=== PATIENT | female | born 1965 | race Caucasian/White ===

== ENCOUNTER → 2016-02-11 | Outpatient (CLI) | payer OTHER ==
--- NOTE | 2016-02-11 07:52 | MR ---
EXAMINATION TYPE: MR angio head wo con DATE OF EXAM: 02/11/2016 7:47 AM COMPARISON: NONE HISTORY: trigeminal neuralgia TECHNIQUE: Time of flight images focusing on the [place] were performed without contrast. 2- D and 3-D reconstructed images are created on MRI scanner and reviewed. FINDINGS: There is codominant vertebrobasilar system. There is slight tortuosity to proximal basilar artery. There are patent posterior communicating arteries identified bilaterally. There is no signifi cant stenosis or aneurysmal change in the posterior circulation. Images of the anterior circulation show no significant focal stenosis or aneurysmal change. Patent an terior communicating artery is identified. IMPRESSION: No significant focal stenosis or aneurysmal change at the level of the [place].
--- NOTE | 2016-02-11 08:08 | MR ---
EXAMINATION TYPE: MR brain wo con DATE OF EXAM: 02/11/2016 7:51 AM COMPARISON: NONE HISTORY: trigeminal neuralgia per order. Headaches with tingling sensation in face per patient. TECHNIQUE: Multiplanar, multisequence imaging of the brain and brainstem is performed without IV cont rast. FINDINGS: Diffusion weighted images demonstrate no evidence of a recent infarct or other diffusion abnormality. There is no extraaxial fluid collection or significant white matter signal abnormality. The ventricu lar system and cisternal spaces are normal in size and appearance. The brain volume is age appropria te. Midline structures demonstrate normal morphology. The craniocervical junction appears within normal limits. Normal vascular flow voids are present. The visualized sinuses are clear and the globes are i ntact. IMPRESSION: No significant finding is seen to account for patient's symptoms.
== END | disposition home or self-care (01) ==
LOC: RADMRIMAIN 07:09
PROVIDERS: ATTEND Psychiatry & Neurology Neurology
DX: G50.0 Trigeminal neuralgia (principal)
CPT/HCPCS: 70544; 70551

== ENCOUNTER → 2016-05-22 | Outpatient (CLI) | payer OTHER ==
--- NOTE | 2016-05-22 08:39 | MR ---
EXAMINATION TYPE: MR lumbar spine wo con DATE OF EXAM: 05/22/2016 6:44 AM COMPARISON: NONE HISTORY: 50-year-old female with low back pain TECHNIQUE: Multiplanar, multisequence images of the lumbar spine were acquired. FINDINGS: Vertebral body heights are preserved and alignment is maintained. No suspicious bone marrow placement. Conus medullaris is normal. There is mild desiccation of the L5-S1 intervertebral disc. Mild disc bulging at L3-S1 levels. A left intraforaminal posterior annular fissure is noted at L5-S1, sagittal image 5. From T12 through L3 levels, no spinal canal or neuroforaminal stenosis. At L3-L4, there is very mild bulging disc which does not contribute to any significant spinal canal o r neuroforaminal stenosis. At L4-L5, there is mild bulging disc and mild facet degenerative change. Changes do not result in any significant spinal canal or foraminal stenosis. At L5-S1, mild facet degenerative change and mild diffuse disc bulge. Again, left intraforaminal post erior annular fissure. Disc material closely approaches but does not appear to abut the major binta ing left S1 nerve root. No significant spinal canal stenosis. Minimal inferior neural foraminal narro wing on the left. No prevertebral or paravertebral soft tissue abnormality seen. IMPRESSION: 1. Mild degenerative disc disease with very mild disc bulging from L3 through S1 levels. 2. The disc is mildly desiccated at L5-S1 with a left intraforaminal annular fissure. Disc material m inimally encroaches onto the inferior left neural foramen at this level and closely approaches but do es not appear to abut the traversing left S1 nerve root. 2. No significant spinal canal or neural foraminal stenosis seen.
== END | disposition home or self-care (01) ==
LOC: RADMRIMAIN 06:07
PROVIDERS: ATTEND Psychiatry & Neurology Neurology
DX: M51.26 Other intervertebral disc displacement, lumbar region (principal); M51.36 Other intervertebral disc degeneration, lumbar region; M51.37 Other intervertebral disc degeneration, lumbosacral region
CPT/HCPCS: 72148

== ENCOUNTER → 2016-09-08 | Outpatient (CLI) | payer OTHER ==
[2016-09-07 14:36] VITALS: BMI 29.2
[2016-09-08 12:00] VITALS: BP 137/83; PULSE 99; RESP 18
--- NOTE | 2016-09-08 12:49 | P.CONS ---
History of Present Illness - Reason for Consult Consult date: 09/08/16 - Chief Complaint Lower back, tailbone and right hip pain - History of Present Illness This is a 50-year-old female who was recently diagnosed with lupus. She has multiple sites of arthritis especially in the lower extremities including bilateral knees for which she had total knee replacement already. Most of the patient's pain is in the lower back and the tailbone she has difficulty sitting straight because of this pain and she has to lie on either side to avoid any pressure on her tailbone. This pain increases by sitting and by standing or walking for too long. She denies any bowel or bladder dysfunction. This pain occasionally wakes her up at night. The patient states that [place] had helped her pain however she is out of it. She is on no specific anti-lupus medications. The patient is unemployed she lives with her significant other she admits to using one pack a day of tobacco but she denies any marijuana or illicit drug usage. She she feels numbness and tingling in both legs in no specific radicular distribution. The patient was told by her neurologist that she does have peripheral neuropathy however I don't have access to the results of the EMG testing that she had previously. Her lumbar spine MRI shows mild degenerative changes. Past Medical History Past Medical History: Asthma, Musculoskeletal Disorder, Osteoarthritis (OA) Additional Past Medical History / Comment(s): low back pain especially w/sitting , pain & numbness kitty legs, possible lupus-following up w/Dr Miller History of Any Multi-Drug Resistant Organisms: None Reported Past Surgical History: Joint Replacement, Tubal Ligation Additional Past Surgical History / Comment(s): cyst on ovaries removed, both knees replaced Past Anesthesia/Blood Transfusion Reactions: No Reported Reaction Smoking Status: Current every day smoker - Past Family History Father Family Medical History: Cancer Medications and Allergies Home Medications Medication Instructions Recorded Confirmed Type Amitriptyline HCl [Elavil] 25 mg PO HS 09/07/16 09/08/16 History OXcarbazepine [Trileptal] 300 mg PO QID 09/07/16 09/08/16 History Allergies Allergy/AdvReac Type Severity Reaction Status Date / Time No Known Allergies Allergy Verified 09/07/16 14:20 Physical Exam Vitals: Vital Signs Pulse Resp BP Pulse Ox 09/08/16 11:51 99 18 137/83 98 - Psychiatric Psychiatric: A&O x's 3 The patient is alert oriented 3. She is trying to set sideways to avoid any pressure on her tailbone. Neuro exam of the lower extremities showed decreased knee flexion and extension to 4 out of 5 bilaterally and symmetrically due to increasing pain in her back as she states that she has normal ankle flexion and extension and also normal bilateral deep tendon reflexes. She has significant tenderness around the tailbone area and also on the lumbar paravertebral area. She has severe pain with internal and external rotation of the right hip joint. Straight leg raising test increased her right thigh pain. Lungs are clear to auscultation heart is regular no murmurs. Assessment and Plan Plan: This is a 50-year-old female with history of lupus and widespread joint pain. She does have increasing lower back pain and right hip pain also significant pain around the coccyx with possible diagnosis of coccydynia. The lumbar spine MRI showed mild degenerative changes and disc tears. The physical exam showed significant tenderness around the coccyx and also significant pain with right hip internal and external rotation. The patient smokes one pack of cigarettes a day however she denies any illicit drug usage. The treatment at this point would be mostly anti-inflammatory medications I'll give her prescription for Mobic 7.5 mg twice a day after meals. 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 Given the significant pain with the right hip joint movement I will check the last x-ray of her right hip that the patient states she had received 2 years ago. We might need to repeat this x-ray. If the patient's pain does not get better with Mobic we can try using tramadol as needed for pain however I think that treating lupus most likely would help her pain too. I will try to obtain the last EMG test results that she had recently. I thank you for the consultation
== END | disposition home or self-care (01) ==
LOC: PNWHC3 11:32
PROVIDERS: ATTEND Anesthesiology
DX: M47.816 Spondylosis without myelopathy or radiculopathy, lumbar region (principal); M25.551 Pain in right hip; J45.909 Unspecified asthma, uncomplicated; F17.200 Nicotine dependence, unspecified, uncomplicated; Z79.899 Other long term (current) drug therapy
CPT/HCPCS: 99211

== ENCOUNTER → 2016-11-18 | Outpatient (CLI) | payer OTHER ==
--- NOTE | 2016-11-18 14:37 | MM ---
Reason for exam: screening (asymptomatic). Baseline mammogram. Physical Findings: Nurse did not find any significant physical abnormalities on exam. MG Screening Mammo w CAD Bilateral CC and MLO view(s) were taken. The breast tissue is heterogeneously dense. This may lower the sensitivity of mammography. There is no discrete abnormality. These results were verbally communicated with the patient and result sheet given to the patient on 11/18/16. ASSESSMENT: Negative, BI-RAD 1 RECOMMENDATION: Routine screening mammogram of both breasts in 1 year.
== END | disposition home or self-care (01) ==
LOC: RADMAMWWP 13:58
PROVIDERS: ATTEND Family Medicine
DX: Z12.31 Encounter for screening mammogram for malignant neoplasm of breast (principal)

== ENCOUNTER 2016-11-30 12:12 | Day surgery (SDC) | payer OTHER ==
[2016-11-25 13:50] VITALS: BMI 29.1
[~2016-11-30 12:12] MED LIST: LACTATED RINGERS 1,000 ML IV SCH; LIDOCAINE 1% 20 ML VIAL (10MG/ML) FOR IV START INTRADERMA PRN
[2016-11-30 12:20] VITALS: RESP 18; TEMP 97
[2016-11-30] MEDS ORDERED: LACTATED RINGERS 1,000 ML IV ONE (12:22)
[2016-11-30] MEDS ORDERED: PROPOFOL 10 MG/ML 20 ML VIAL IV ONE (12:58)
--- NOTE | 2016-11-30 13:27 | P.PCN ---
Date of Procedure: 11/30/16 Procedure(s) Performed: Procedure: Total colonoscopy. Preoperative diagnosis: Screening for neoplasia. Postoperative diagnosis: Exam within normal limits. Preparation: HalfLytely prep. Sedation: Was provided by anesthesia. Brief clinical history: The patient is a 51-year-old female who is referred for this evaluation for screening for neoplasia age being her risk factor. She has no abdominal complaints, bleeding or anemia. No family history of colon cancer. This would be her first colonoscopy. Procedure: With the patient on her left lateral decubitus position and after informed consent and adequate sedation, the perianal area was inspected and it did not show any fissures or fistulas. There were no masses felt on digital rectal examination. The Olympus CFQ 160L video colonoscope was then inserted in the rectum in the usual fashion and advanced to the cecum. The preparation was good. The mucosa appeared healthy. No polyps or tumors were seen or any obvious diverticular disease or other pathology. I retroflexed the endoscope in the rectum before the endoscope was withdrawn. The patient tolerated the procedure well. Plan: The patient was reassured. She will follow-up with you as planned and I recommended repeat exam in 10 years.
[2016-11-30 13:39] VITALS: BP 110/63; PULSE 81
== END 2016-11-30 13:57 | disposition home or self-care (01) ==
LOC: ORWHC2ENDO 12:12
DX: Z12.11 Encounter for screening for malignant neoplasm of colon (principal); R19.4 Change in bowel habit; J45.909 Unspecified asthma, uncomplicated; Z79.899 Other long term (current) drug therapy
CPT/HCPCS: 81025; J2704; G0121

== ENCOUNTER 2017-09-06 18:10 | Inpatient (IN) | payer MEDICARE, OTHER ==
--- NOTE | 2017-09-06 18:31 | ED ---
General Adult HPI - General Chief complaint: Dizziness Stated complaint: dizziness Time Seen by Provider: 09/06/17 18:16 Source: EMS, RN notes reviewed, old records reviewed Mode of arrival: EMS Limitations: no limitations - History of Present Illness Initial comments: This is a 51-year-old female the ER for evaluation shortness a for evaluation regarding significant neurological complaints, patient is and accepted and transfer for evaluation of lower extremity weakness and inability to ambulate and left-sided weakness. Patient has positive medical history for lupus. No recent headaches trauma fevers. No recent change in medication. - Related Data Home Medications Medication Instructions Recorded Confirmed Gabapentin [Neurontin] 300 mg PO QID 11/25/16 09/06/17 Pregabalin [Lyrica] 75 mg PO BID 09/06/17 09/06/17 oxyCODONE-APAP 10-325MG [Percocet 1 tab PO Q6HR PRN 09/06/17 09/06/17 10-325 mg] Allergies Allergy/AdvReac Type Severity Reaction Status Date / Time No Known Allergies Allergy Verified 09/06/17 18:22 Review of Systems ROS Statement: Those systems with pertinent positive or pertinent negative responses have been documented in the HPI. ROS Other: All systems not noted in ROS Statement are negative. Past Medical History Past Medical History: Asthma, Musculoskeletal Disorder, Osteoarthritis (OA), Skin Disorder Additional Past Medical History / Comment(s): pain & numbness kitty legs, collagen vascular disease, chronic rash on abdomen and back,"lupus in rt knee", History of Any Multi-Drug Resistant Organisms: None Reported Past Surgical History: Joint Replacement, Tubal Ligation Additional Past Surgical History / Comment(s): cyst on ovaries removed, kitty knee replacements Past Anesthesia/Blood Transfusion Reactions: No Reported Reaction Past Psychological History: No Psychological Hx Reported Smoking Status: Current every day smoker Past Alcohol Use History: Rare Past Drug Use History: None Reported - Past Family History Father Family Medical History: Cancer General Exam - General Exam Comments Initial Comments: NIH of 0 Limitations: no limitations General appearance: alert, in no apparent distress Head exam: Present: atraumatic, normocephalic, normal inspection Eye exam: Present: normal appearance, PERRL, EOMI. Absent: scleral icterus, conjunctival injection, periorbital swelling ENT exam: Present: normal exam, mucous membranes moist Neck exam: Present: normal inspection. Absent: tenderness, meningismus, lymphadenopathy Respiratory exam: Present: normal lung sounds bilaterally. Absent: respiratory distress, wheezes, rales, rhonchi, stridor Cardiovascular Exam: Present: regular rate, normal rhythm, normal heart sounds. Absent: systolic murmur, diastolic murmur, rubs, gallop, clicks GI/Abdominal exam: Present: soft, normal bowel sounds. Absent: distended, tenderness, guarding, rebound, rigid Extremities exam: Present: normal inspection, full ROM, normal capillary refill. Absent: tenderness, pedal edema, joint swelling, calf tenderness Back exam: Present: normal inspection Neurological exam: Present: alert, oriented X3, CN II-XII intact Psychiatric exam: Present: normal affect, normal mood Skin exam: Present: warm, dry, intact, normal color. Absent: rash Course Vital Signs 09/06/17 18:12 Temperature 98.1 F Pulse Rate 76 Respiratory 16 Rate Blood Pressure 142/73 O2 Sat by Pulse 98 Oximetry - Reevaluation(s) Reevaluation #1: 09/06/17 18:32 Transferring paperwork is thoroughly reviewed Reevaluation #2: 09/06/17 18:32 No neurological deficits found on exam Medical Decision Making - Medical Decision Making 51 female the ER for evaluation of multiple complaints dizziness weakness dizziness with position changes and left-sided weakness. Patient's be admitted for neurological evaluation Disposition Clinical Impression: Orthostatic hypotension, Cerebrovascular accident, Benign paroxysmal positional vertigo, Weakness Disposition: ADMITTED IP TO THIS [facility] Condition: Fair Instructions: Dizziness (ED) Is patient prescribed a controlled substance at d/c from ED?: No Referrals: Lucho العلي MD [Primary Care Provider] - 1-2 days
[2017-09-06] MEDS: SODIUM CHLORIDE 0.9% 1,000 ML IV SCH (20:13)
[2017-09-06 20:48] VITALS: BMI 30.1
[2017-09-07] MEDS: SODIUM CHLORIDE 0.9% 1,000 ML IV SCH ×2 (04:50→19:25)
[2017-09-07] MEDS: oxyCODONE-APAP 10-325MG 1 EACH TAB PO PRN ×3 (06:35→18:24)
[2017-09-07 06:36] LABS: Basophils % (A) 0 %; Eosinophils # (A) 0.1 k/uL (0-0.7); Eosinophils % (A) 2 %; HCT 38.5 % (34.0-46.0); HGB 12.4 gm/dL (11.4-16.0); Lymphocytes # (A) 1.7 k/uL (1.0-4.8); Lymphocytes % (A) 43 %; MCH 31.2 pg (25.0-35.0); MCHC 32.4 g/dL (31.0-37.0); MCV 96.5 fL (80.0-100.0); Mean Platelet Volume 7.9; Monocytes # (A) 0.2 k/uL (0-1.0); Monocytes % (A) 5 %; Neutrophils % (A) 48 %; Platelet Count 177 k/uL (150-450); RBC 3.98 m/uL (3.80-5.40); RDW 13.2 % (11.5-15.5); WBC 4.1 k/uL (3.8-10.6)
[2017-09-07 06:57] LABS: Anion Gap 1 mmol/L; Blood Urea Nitrogen 13 mg/dL (7-17); Calcium 8.4 mg/dL (8.4-10.2); Carbon Dioxide 24 mmol/L (22-30); Chloride 113 mmol/L (98-107); Glucose 90 mg/dL (74-99); Potassium 3.9 mmol/L (3.5-5.1); Sodium 138 mmol/L (137-145)
[2017-09-07 08:09] VITALS: RESP 18
[2017-09-07] MEDS ORDERED: oxyCODONE-APAP 10-325MG 1 EACH TAB PO PRN (10:42)
[2017-09-07] MEDS: GABAPENTIN 300 MG CAP PO SCH ×3 (12:17→21:36)
--- NOTE | 2017-09-07 14:35 | FL ---
EXAMINATION TYPE: FL barium swallow w video DATE OF EXAM: 09/07/2017 COMPARISON: NONE HISTORY: Dysphasia, food getting stuck TECHNIQUE: Fluoroscopy. FINDINGS: Fluoroscopic guidance was provided for the procedure performed in conjunction with the [facility] pathology department. Please see complete report forthcoming from the Speech Pathology departmen t. Various consistencies from thin liquid to solids were administered. Fluoroscopy time 1 minute 18 second Number of images: 0. No aspiration or penetration was evident. No significant pooling was observed in the vallecula. There was normal propulsion of the bolus. IMPRESSION: 1. Normal modified barium swallow.
--- NOTE | 2017-09-07 14:55 | HP ---
HISTORY AND PHYSICAL CHIEF COMPLAINT: Weakness in the left arm and left leg. HISTORY OF PRESENT ILLNESS: This is another admission for this 51-year-old white female. She started to notice weakness and dysesthesias in the left arm and left leg and went to the emergency room at [facility]. She was to be admitted as a possible CVA until I was informed that they did not have neurologic coverage that week. She was transferred to [facility]. REVIEW OF SYSTEMS: She has had no headaches, change in vision or the hearing, difficulty speaking, dizziness, loss of balance, etc. She has had no chest pain, shortness of breath. No palpitations, syncope, abdominal pain, vomiting, diarrhea, nausea, and melena, hematochezia, jaundice, hepatitis, etc. She has had no frequency, urgency, or dysuria, renal failure, etc. She has had no diabetes. She has had no fever or chills. Past medical history, family history, personal and social histories reveal that she has no allergies. She takes Ventolin, Symbicort, nebulizer with DuoNeb, Daliresp 500 mg once a day, hydroxychloroquine 200 mg twice a day, duloxetine 30 mg once a day, Vicodin 10 q.i.d. p.r.n., gabapentin 300 mg q.i.d. The remainder of her history is unremarkable. She does smoke. PHYSICAL EXAMINATION: Blood pressure 116/58, pulse 70, respirations 16. She is afebrile. In general, she appeared to be well-developed, well-nourished, in no acute distress. Skin color is normal. Skin is warm and dry. Lymph nodes not enlarged. Head, ears, eyes, nose, mouth, and throat are normal. She does complain of fullness in the throat, difficulty swallowing. She has had no chest pain, palpitations, orthopnea, PND, hypertension, abdominal pain, vomiting, diarrhea, melena, hematochezia, jaundice, hematuria, frequency, urgency, arthralgias, diabetes, etc. Past medical history, family history, personal and social history otherwise unremarkable and noncontributory as already mentioned. Her physical exam is normal in the head, ears, eyes, nose, and throat and mouth being normal and carotids are normal. No bruits. The chest is clear. The cardiac exam is normal. No murmurs or extra sounds. The abdomen is soft, nontender without visceromegaly or masses. Bowel sounds present. Extremities are normal and neurologically she is intact. It is difficult to detect weakness on the left side now. IMPRESSION: 1. ? right-sided transient ischemic attack with left upper and lower extremity weakness. 2. Asthmatic bronchitis. 3. Low back pain. 4. Nicotine abuse. PLAN: 1. Bed rest. 2. IV fluids. 3. Frequent monitoring of her neurologic status and vital signs. 4. Carotid duplex imaging. 5. Review CT scan. 6. Echocardiogram. MMODL / IJN: [id number] /
--- NOTE | 2017-09-07 14:55 | PN ---
PROGRESS NOTE DATE OF SERVICE: 09/07/2017. CHIEF COMPLAINT: Left-sided weakness. HISTORY OF PRESENT ILLNESS: This lady is getting back to normal. She feels like her left side is normal. Workup continues. She will have an echo and carotid duplex. She also has been complaining for a long time about feeling "swelling in the throat" with difficulty swallowing and this will be evaluated with a swallow study. PHYSICAL EXAM: Her chest is clear. Cardiac exam is normal. Abdomen is soft, nontender. Strength seems to be normal. IMPRESSION: 1. Question right-sided transient ischemic attack. 2. Dysphagia. 3. Hypertension. PLAN: 1. Echocardiogram. 2. Carotid duplex imaging. 3. Barium swallow. MMODL / IJN: [id number] /
--- NOTE | 2017-09-07 14:57 | US ---
EXAMINATION TYPE: US carotid duplex BILAT DATE OF EXAM: 09/07/2017 COMPARISON: NONE CLINICAL HISTORY: left sided weakness. EXAM MEASUREMENTS: RIGHT: Peak Systolic Velocity (PSV) cm/sec ----- Right CCA: 74.3 ----- Right ICA: 74.6 ----- Right ECA: 51.3 ICA/CCA ratio: 1.0 RIGHT: End Diastole cm/sec ----- Right CCA: 20.6 ----- Right ICA: 37.0 ----- Right ECA: 10.9 LEFT: Peak Systolic Velocity (PSV) cm/sec ----- Left CCA: 84.5 ----- Left ICA: 75.7 ----- Left ECA: 61.6 ICA/CCA ratio: 0.9 LEFT: End Diastole cm/sec ----- Left CCA: 32.3 ----- Left ICA: 33.5 ----- Left ECA: 10.4 VERTEBRALS (direction of flow): Right Vertebral: Antegrade Left Vertebral: Antegrade Rhythm: Normal Minimal atherosclerotic changes with no significant velocity elevations. Mild intimal thickening is noted. IMPRESSION: Intimal thickening without significant flow-limiting stenosis. There are some scattered small plaques present. Criteria for Assigning % of Stenosis / Diameter reduction (Estimation based on the indirect measurements of the internal carotid artery velocities (ICA PSV). 1. Normal (no stenosis)=ICA PSV < 125 cm/s: ratio < 2.0: ICA EDV<40 cm/s. 2. Less than 50% stenosis=ICA PSV < 125 cm/s: ratio < 2.0: ICA EDV<40 cm/s. 3. 50 to 69% stenosis=ICA PSV of 125 to 230 cm/s: ration 2.0 ? 4.0: ICA EDV 40-100 cm/s. 4. Greater than 70% stenosis to near occlusion= ICA PSV > 230 cm/s: ratio > 4.0: ICA EDV > 100 cm/s. 5. Near occlusion= ICA PSV velocities may be low or undetectable: variable ratio and ICA EDV. 6. Total occlusion=unable to detect flow.
[2017-09-07] MEDS: ASPIRIN 325 MG TAB PO SCH (19:05)
[2017-09-07] MEDS: PREGABALIN 75 MG CAP PO SCH ×2 (19:09→21:36)
[2017-09-07] MEDS ORDERED: PREGABALIN 75 MG CAP PO SCH (21:00)
[2017-09-08 01:50] LABS: Cholesterol 211 mg/dL (<200); HDL Cholesterol 28 mg/dL (40-60); LDL Cholesterol,Calculated 108 mg/dL (0-99); Triglycerides 375 mg/dL (<150)
[2017-09-08] MEDS: oxyCODONE-APAP 10-325MG 1 EACH TAB PO PRN (05:04)
[2017-09-08] MEDS: SODIUM CHLORIDE 0.9% 1,000 ML IV SCH ×2 (06:12→10:53)
[2017-09-08] MEDS: ASPIRIN 325 MG TAB PO SCH (07:45)
[2017-09-08] MEDS: GABAPENTIN 300 MG CAP PO SCH (07:45)
[2017-09-08] MEDS: PREGABALIN 75 MG CAP PO SCH (07:45)
--- NOTE | 2017-09-08 08:33 | CONS ---
CONSULTATION DATE OF CONSULTATION: 09/07/2017 CHIEF COMPLAINT: Possible stroke. HISTORY OF PRESENT ILLNESS: Mrs. Muhammad is a pleasant 51-year-old, female, who is being evaluated today on 09/07/2017 by the neurology service per the request of Dr. العلي for a possible stroke. The patient was brought into [facility] with complaints of some confusion. She woke up yesterday at around 8 a.m. with no symptoms and her symptoms suddenly started occurring at around noon and gradually worsened throughout the day. When asked about her confusion, she describes symptoms of apraxia where she could not remember how to do things that she has done on a normal daily basis. An example of this was that she could not remember how to wash her hair and the steps needed to do so. She also had some generalized weakness and some tremors. She remembers some numbness and tingling in her left arm. All of these symptoms have now resolved except she still has mild numbness. She denies any previous episodes similar to this. A carotid Doppler was done, which showed no hemodynamically significant stenosis. Her CBC and basic metabolic profile was normal. According to the chart, the patient was initially taken to another hospital where a CT scan of the brain was done and it showed no acute findings. She was then transferred to [facility] after that. At the time of my evaluation, the patient is lying in her bed and appears to be in no acute distress. PAST MEDICAL HISTORY: Asthma, arthritis, lupus, neuropathic pain, history of orthopedic surgery and tubal ligation. SOCIAL HISTORY: The patient is a current every day smoker. She rarely drinks alcohol. She denies any drug use. FAMILY HISTORY: Positive for cancer. HOME MEDICATIONS: Reviewed in the chart. ALLERGIES: No known drug allergies. REVIEW OF SYSTEMS: CONSTITUTIONAL: Negative. EYES: Negative. ENT: Positive for vertigo yesterday which has resolved. CARDIOVASCULAR: Negative. RESPIRATORY: Negative. NEUROLOGICAL: As mentioned above. GASTROINTESTINAL: Negative. GENITOURINARY: Negative. PSYCHIATRIC: Negative. ENDOCRINE: Negative. DERMATOLOGICAL: Positive for a chronic rash. MUSCULOSKELETAL: Positive for joint pain. PHYSICAL EXAM: Vital signs show a temperature of 98.4, pulse 71, respiration 18, blood pressure 129/70. GENERAL APPEARANCE: The patient is a well-developed female who appears to be in no acute distress. HEENT: Normocephalic, atraumatic, no facial asymmetry is seen. NECK: Supple with no masses felt. CARDIOVASCULAR: Regular rate and rhythm. ABDOMEN: Nontender, nondistended. Extremities showed no edema or clubbing. NEUROLOGICAL EXAM: The patient is awake and oriented x3. Speech and language are normal. Strength is full in all 4 extremities. Sensory exam showed diminished light touch sensation on the left upper and lower extremities compared to the right. No pronator drift is seen. No tremors or seizure-like activity is seen. Cranial nerve testing showed decreased sensation on the left face compared to the right. IMPRESSION: 1. Apraxia, resolved. 2. Left-sided numbness. 3. Possible ischemic stroke. 4. Tremors, resolved. 5. Tobacco dependence. RECOMMENDATION: The patient's multiple neurological symptoms have improved but she continues to have a sensory deficit on my examination as mentioned above involving the left side. She also had some apraxia and dizziness at home which have since resolved. She has been started on aspirin 325 mg daily. A carotid Doppler was done, which showed no hemodynamically significant stenosis. I will order an MRI of the brain, lipid panel, EEG, and serum homocysteine level. The patient was counseled on tobacco cessation. Continue the rest of your current workup and management. I will continue to follow with you. Further recommendations to follow. Thank you, Dr. العلي for allowing me to participate in the care of your patient. If you have any questions, please feel free to contact me. EDER / ANAN: [id number] /
--- NOTE | 2017-09-08 09:11 | MR ---
EXAMINATION TYPE: MR brain wo con DATE OF EXAM: 09/08/2017 COMPARISON: 02/11/2016 HISTORY: 51-year-old female Left sided weakness, CVA TECHNIQUE: Multiplanar, multisequence images of the brain and brainstem were acquired without IV con trast. Diffusion weighted imaging is performed. FINDINGS: No evidence for acute infarction, hemorrhage, mass, mass effect, midline shift, herniation, effacemen t of basal cisterns, or extra-axial fluid collection. The ventricles and sulci are age-appropriate. Major intracranial flow voids are intact. T2/FLAIR weighted sequences show punctate few foci of bright signal which appear to correspond to ves sels. No definite white matter signal abnormality seen. Midline structures demonstrate normal morphology. The craniocervical junction is normal. The visualized sinuses are clear and the globes are intact. Similar minimal fluid trapped in the left mastoid air cells. IMPRESSION: No acute intracranial abnormality seen. Stable exam.
[2017-09-08 11:22] VITALS: BP 125/68; PULSE 69; TEMP 98.6
--- NOTE | 2017-09-08 13:53 | ECHOF ---
Referral Reason:TIA MEASUREMENTS -------- HEIGHT: 162.6 cm WEIGHT: 96.6 kg BP: 125/65 RVIDd: 2.4 cm (< 3.3) IVSd: 0.9 cm (0.6 - 1.1) LVIDd: 4.0 cm (3.9 - 5.3) LVPWd: 1.5 cm (0.6 - 1.1) IVSs: 1.4 cm LVIDs: 2.5 cm LVPWs: 1.1 cm Ao Diam: 3.4 cm (2.0 - 3.7) AV Cusp: 1.7 cm (1.5 - 2.6) LA Diam: 2.8 cm (2.7 - 3.8) MV EXCURSION: 28.807 mm (> 18.000) MV EF SLOPE: 150 mm/s (70 - 150) EPSS: 0.7 cm MV E Sylvester: 0.77 m/s MV DecT: 218 ms MV A Sylvester: 0.86 m/s MV E/A Ratio: 0.89 RAP: 5.00 mmHg RVSP: 12.04 mmHg FINDINGS -------- Sinus rhythm. This was a technically good study. LV size, wall thickness and systolic function are normal, with an EF greater than 55%. The left neal tricular size is normal. The right ventricle is normal in size. The left atrial size is normal. The right atrial size is normal. The aortic valve is trileaflet, and appears structurally normal. No aortic stenosis or regurgitation. Mild mitral annular calcification present. Mild mitral regurgitation is present. Mild tricuspid regurgitation present. There is no evidence of pulmonary hypertension. The right v entricular systolic pressure, as measured by Doppler, is 12.04mmHg. There is no pulmonic regurgitation present. The aortic root size is normal. Echo free space represents a pericardial fat pad. CONCLUSIONS -------- 1. LV size, wall thickness and systolic function are normal, with an EF greater than 55%. 2. The left ventricular size is normal. 3. The right ventricle is normal in size. 4. The left atrial size is normal. 5. The right atrial size is normal. 6. The aortic valve is trileaflet, and appears structurally normal. No aortic stenosis or regurgitati on. 7. Mild mitral annular calcification present. 8. Mild mitral regurgitation is present. 9. Mild tricuspid regurgitation present. 10. There is no evidence of pulmonary hypertension. 11. The right ventricular systolic pressure, as measured by Doppler, is 12.04mmHg. 12. There is no pulmonic regurgitation present. 13. The aortic root size is normal. 14. Echo free space represents a pericardial fat pad. DIE FORGER: Norah Choi RDCS
--- NOTE | 2017-09-08 15:06 | EEG ---
ELECTROENCEPHALOGRAM REPORT DATE OF SERVICE: 09/08/2017 REASON FOR TESTING: Dizziness and transient ischemic attack. DESCRIPTION OF THE PROCEDURE: This EEG was performed using a 21 channel digital electroencephalograph, following international 10-20 system. DESCRIPTION OF THE RECORDING: From the beginning of the tracing, and with patient's eyes closed, the background rhythm was mostly consisting of 8-9 Hz alpha frequency in the posterior occipital leads. No obvious asymmetry is seen. Occasional movement and muscle artifacts are seen. Photic stimulation was performed with a minimal driving response seen. No pathological waves were elicited. Hyperventilation was not performed. The patient does reach stage II of sleep during the tracing and occasional sleep spindles are seen. No epileptiform discharges were seen. Her EKG lead showed a regular rate and rhythm. INTERPRETATION: This asleep and awake EEG can be considered within normal limits. There was no asymmetry seen. No epileptiform discharges were noticed. The absence of epileptiform discharges does not rule out the diagnosis of epilepsy; therefore clinical correlation is recommended. MMEDGAR / ANAN: [id number] /
--- NOTE | 2017-09-08 15:30 | DS ---
DISCHARGE SUMMARY CHIEF COMPLAINT: Possible right-sided TIA. HISTORY OF PRESENT ILLNESS AND PHYSICAL EXAM: Details of this lady's history and physical can be found in the initial workup. LABORATORY STUDIES: While she was in the hospital, she had laboratory studies, details which can be found in the laboratory section of her chart. COURSE IN HOSPITAL: After admission, she was placed in bedrest, started on intravenous fluids and frequent monitoring of vital signs and neurologic status. She underwent a workup for possible TIA. CT was unremarkable and carotid duplex imaging was normal. She is seen by Neurology and MRI was ordered, which was normal, as was expected. It was felt that she could go home at that point, and she will come to the office in a day or 2 and her workup will be continued. FINAL DIAGNOSIS: 1. Left-sided numbness and weakness. 2. Possible transient ischemic attack. OPERATIONS: None. CONSULTATION: Neurology. She is improved. MMODL / ANAN: [id number] /
== END 2017-09-08 12:24 | disposition home or self-care (01) | DRG 69 ==
LOC: EC 18:10 → 6SEL 18:30
PROVIDERS: ADMIT Family Medicine; ATTEND Family Medicine
DX: G45.9 Transient cerebral ischemic attack, unspecified (principal); R13.10 Dysphagia, unspecified; R40.2362 Coma scale, best motor response, obeys commands, at arrival to emergency department; R40.2142 Coma scale, eyes open, spontaneous, at arrival to emergency department; R40.2252 Coma scale, best verbal response, oriented, at arrival to emergency department; I10 Essential (primary) hypertension; R48.2 Apraxia; R25.1 Tremor, unspecified; M54.5 Low back pain; J45.909 Unspecified asthma, uncomplicated; M19.91 Primary osteoarthritis, unspecified site; F17.210 Nicotine dependence, cigarettes, uncomplicated; Z71.6 Tobacco abuse counseling; Z79.899 Other long term (current) drug therapy; Z98.51 Tubal ligation status; Z96.653 Presence of artificial knee joint, bilateral; Z80.9 Family history of malignant neoplasm, unspecified
CPT/HCPCS: 70551; 74230; 80048; 80061; 83090; 84484; 85025; 93306; 93880; 95819; 99285

== ENCOUNTER → 2022-07-30 | Outpatient (CLI) | payer MEDICARE, OTHER ==
--- NOTE | 2022-07-30 13:29 | CT ---
EXAMINATION TYPE: CT soft tissue neck wo con DATE OF EXAM: 07/30/2022 HISTORY: Palpable neck mass COMPARISON: None CT DLP: By 63.8 mGycm. Automated Exposure Control for Dose Reduction was Utilized. TECHNIQUE: CT scan of the neck is performed without and with IV Contrast, , axial images are obtaine d, coronal and sagittal reformatted images are reviewed. FINDINGS: Airway: No gross abnormality seen. Parotid/submandibular glands: No gross abnormality seen. Carotid/Vascular Structures: Mild atherosclerotic change of the carotid artery on the left. Osseous Structures: Moderate to severe disc hypertrophic and degenerative changes C5-6 and C6-C7. Other: Markers were placed over the bilateral neck for palpable abnormalities which appear to corresp ond to subcutaneous varicosities of the vascular system. Lung apices are clear. Thyroid homogeneous in attenuation. IMPRESSION: 1. No significant abnormality is seen. Areas of palpable abnormality appear to correspond to subcutan eous varicosities.
== END | disposition home or self-care (01) ==
LOC: RADCTMAIN 11:20
PROVIDERS: ATTEND Family Medicine
DX: I49.8 Other specified cardiac arrhythmias (principal); R59.0 Localized enlarged lymph nodes; R06.02 Shortness of breath
CPT/HCPCS: 70490; 93225; 93226